=== PATIENT | male | born 2000 | race Caucasian/White ===

== ENCOUNTER 2023-08-26 09:48 | Emergency (ER) | payer SELFPAY ==
[2023-08-26] MEDS ORDERED: Fluorescein 1 MG Ophth Strip EYERT ONE (10:02)
[2023-08-26] MEDS ORDERED: Proparacaine 0.5% Ophth Soln 15 ML Bottle EYELF ONE (10:02)
== END 2023-08-26 10:30 | disposition home or self-care (01) ==
LOC: VM.ED 09:48
DX: S05.01XA Injury of conjunctiva and corneal abrasion without foreign body, right eye, initial encounter (principal); W20.8XXA Other cause of strike by thrown, projected or falling object, initial encounter
CPT/HCPCS: 65220; 99283; J3490